=== PATIENT | female | born 1985 | race Hispanic/Latino ===

== ENCOUNTER 2018-05-03 12:01 | Emergency (ER) | payer OTHER, MEDICAID, SELFPAY ==
[2018-05-03 12:14] VITALS: BP 117/113; PULSE 88; RESP 16; TEMP 36.9; O2SAT 100; BMI 25.2
[2018-05-03 14:28] LABS: Bacteria Urine None Seen
--- NOTE | 2018-05-03 14:31 | ED.FEMALEGU ---
HPI - Female Genitourinary <Karla Dawn PA-C - Last Filed: 05/03/18 22:13> General Chief complaint: Urogenital-Female Stated complaint: kidney stone complications Time Seen by Provider: 05/03/18 14:31 Source: patient Mode of arrival: ambulatory Limitations: no limitations History of Present Illness HPI Narrative: This 32-year-old female comes to ED due to kidney stone pain and concern for obstruction. She has history of medullary sponge kidney, with frequent kidney stones and infection. She states that she developed pain 1-1/2 days ago typical of her kidney stones. She tried her usual pain medicines at home including Toradol, morphine, oxycodone but continues to have severe right side pain. She states she has vomited twice today and does have nausea. She has not had gross hematuria. She states that she does not tend to get dysuria, but frequency with decreased void amounts (she states less than 200 mils per void at home when usually 4-500). She has had chills with pain episodes, otherwise no fever, chills, or sweats. She denies any vaginal discharge or possibility of (in a monogamous relationship on continuous OCP). She has no STD concerns. She denies any diarrhea or bowel habit changes. She has not had any exposures to sick contacts. She does not have chest pain, dyspnea, new pain in the extremities or other complaints on systems review. She states that she feels like pain is on the right side of her bladder, but also can feel up the right side into the flank. She states that she talked with her urologist today who advised her to get evaluated since she has had history of obstruction in the past and needed interventional treatment. Related Data Home Medications Medication Instructions Recorded Confirmed chlorthalidone 12.5 mg PO DAILY 05/03/18 05/03/18 cholecalciferol (vitamin D3) 1,000 unit PO DAILY 05/03/18 05/03/18 [Vitamin D3] duloxetine 60 mg PO DAILY 05/03/18 05/03/18 ketorolac 30 mg PO PRN PRN 05/03/18 05/03/18 morphine 15 mg PO Q6H PRN 05/03/18 05/03/18 norethindrone ac-eth estradiol 1 tab PO DAILY 05/03/18 05/03/18 [Diogenes 1.5/30 (21)] oxycodone 15 mg PO Q4H PRN 05/03/18 05/03/18 potassium citrate 10 meq PO BID 05/03/18 05/03/18 tamsulosin [Flomax] 0.4 mg PO DAILY 05/03/18 05/03/18 Previous Rx's Medication Instructions Recorded ciprofloxacin HCl [Cipro] 500 mg PO BID #10 tab 05/03/18 Allergies Allergy/AdvReac Type Severity Reaction Status Date / Time sulfamethoxazole Allergy Verified 05/03/18 12:14 [From Bactrim] trimethoprim [From Bactrim] Allergy Verified 05/03/18 12:14 metoclopramide [From Reglan] AdvReac Verified 05/03/18 12:14 prochlorperazine AdvReac Verified 05/03/18 12:14 [From Compazine] Review of Systems <Karla Dawn PA-C - Last Filed: 05/03/18 22:13> Review of Systems All systems reviewed & are unremarkable except as noted in HPI and below PFSH <Karla Dawn PA-C - Last Filed: 05/03/18 22:13> Comment: Never smoker, no ETOH or street drugs Exam <Karla Dawn PA-C - Last Filed: 05/03/18 22:13> Narrative Exam Narrative: GENERAL APPEARANCE: Patient resting, appears uncomfortable but in NAD HEENT: PERRL, EOMI, no scleral icterus NECK: Supple LUNGS: Clear to auscultation bilaterally. HEART: Rate and rhythm regular, normal S1 and S2, no S3 or S4. ABDOMEN: Soft, nondistended, bowel sounds present x 4 quadrants, no masses palpable, no hepatosplenomegaly. Exquisite right suprapubic tenderness, less tender through the right lateral lower and upper quadrants through to the flank, no midline or left-sided tenderness. No guarding or rebound EXTREMITIES: No edema, no cyanosis DERMATOLOGIC: No jaundice or exanthem NEUROLOGIC: Alert and oriented with normal speech and coordination Initial Vital Signs Initial Vital Signs: Vital Signs Temperature 98.4 F 05/03/18 12:14 Pulse Rate 88 05/03/18 12:14 Respiratory Rate 16 05/03/18 12:14 Blood Pressure 117/113 H 05/03/18 12:14 Pulse Oximetry 100 05/03/18 12:14 <Domonique De La O DO - Last Filed: 05/04/18 08:52> Initial Vital Signs Initial Vital Signs: Vital Signs Temperature 98.4 F 05/03/18 12:14 Pulse Rate 88 05/03/18 12:14 Respiratory Rate 16 05/03/18 12:14 Blood Pressure 117/113 H 05/03/18 12:14 Pulse Oximetry 100 05/03/18 12:14 Course <Karla Dawn PA-C - Last Filed: 05/03/18 22:13> Additional Information: Patient reported resolution of nausea and significant improvement in pain, though pain was persistent. She states that Alfredo works well for her at home, but is concerned if she cannot control pain or may need to come back. I did speak with on-call hospitalist Dr. Dyer who did not feel admission warranted at this point. In addition, explained to patient we do not have Urology or Nephrology available in the hospital here. If she is feeling better and agreeable with discharge. Advised return if acutely worsening symptoms, otherwise she will continue Cipro which she has taken frequently in the past, and speak with her team tomorrow regarding follow-up and whether to continue antibiotics. Orders Ordered: Discontinued Medications Ciprofloxacin (Cipro) 500 mg PO NOW ONE Stop: 05/03/18 16:07 Last Admin: 05/03/18 16:44 Dose: 500 mg Hydromorphone HCl (Dilaudid) 1 mg IV NOW ONE Stop: 05/03/18 14:47 Last Admin: 05/03/18 14:57 Dose: 1 mg Hydromorphone HCl (Dilaudid) 1 mg IV NOW ONE Stop: 05/03/18 16:07 Last Admin: 05/03/18 16:38 Dose: 1 mg Hydromorphone HCl (Dilaudid) 0.5 mg IV NOW ONE Stop: 05/03/18 18:26 Last Admin: 05/03/18 18:29 Dose: 0.5 mg Sodium Chloride (Normal Saline 0.9%) 1,000 mls @ 1,000 mls/hr IV BOLUS ONE Stop: 05/03/18 17:05 Last Infusion: 05/03/18 18:37 Dose: 0 mls/hr Admin: 05/03/18 16:36 Dose: 1,000 mls/hr Ketorolac Tromethamine (Toradol) 30 mg IV NOW ONE Stop: 05/03/18 14:46 Last Admin: 05/03/18 14:57 Dose: 30 mg Ondansetron HCl (Zofran) 4 mg IV NOW ONE Stop: 05/03/18 14:46 Last Admin: 05/03/18 14:57 Dose: 4 mg Vital Signs - 8 hr 05/03/18 16:51 05/03/18 18:02 Pulse Rate 75 84 Respiratory Rate 16 16 Blood Pressure [Right Arm] 154/100 H 156/90 H Pulse Oximetry 100 100 <Domonique De La O DO - Last Filed: 05/04/18 08:52> Orders Ordered: Discontinued Medications Ciprofloxacin (Cipro) 500 mg PO NOW ONE Stop: 05/03/18 16:07 Last Admin: 05/03/18 16:44 Dose: 500 mg Hydromorphone HCl (Dilaudid) 1 mg IV NOW ONE Stop: 05/03/18 14:47 Last Admin: 05/03/18 14:57 Dose: 1 mg Hydromorphone HCl (Dilaudid) 1 mg IV NOW ONE Stop: 05/03/18 16:07 Last Admin: 05/03/18 16:38 Dose: 1 mg Hydromorphone HCl (Dilaudid) 0.5 mg IV NOW ONE Stop: 05/03/18 18:26 Last Admin: 05/03/18 18:29 Dose: 0.5 mg Sodium Chloride (Normal Saline 0.9%) 1,000 mls @ 1,000 mls/hr IV BOLUS ONE Stop: 05/03/18 17:05 Last Infusion: 05/03/18 18:37 Dose: 0 mls/hr Admin: 05/03/18 16:36 Dose: 1,000 mls/hr Ketorolac Tromethamine (Toradol) 30 mg IV NOW ONE Stop: 05/03/18 14:46 Last Admin: 05/03/18 14:57 Dose: 30 mg Ondansetron HCl (Zofran) 4 mg IV NOW ONE Stop: 05/03/18 14:46 Last Admin: 05/03/18 14:57 Dose: 4 mg Vital Signs - 8 hr 05/03/18 16:51 05/03/18 18:02 Pulse Rate 75 84 Respiratory Rate 16 16 Blood Pressure [Right Arm] 154/100 H 156/90 H Pulse Oximetry 100 100 MDM - Female Genitourinary <Karla Dawn PA-C - Last Filed: 05/03/18 22:13> Lab Data Attestation: I reviewed the patient's lab results. Result diagrams: 05/03/18 14:50 05/03/18 14:50 Lab Results 05/03/18 05/03/18 05/03/18 Range/Units 14:15 14:50 14:50 WBC 8.3 (4.5-11.0) X10^3/uL RBC 4.85 (4.0-5.2) X10^6/uL Hgb 14.3 (12.0-16.0) g/dL Hct 42.7 (36-46) % MCV 88.0 (80-100) fL MCH 29.4 (26-34) PG MCHC 33.4 (30-36) % RDW 13.9 (11.6-14.8) % Plt Count 367 (150-400) X10^3/uL Neut % (Auto) 74.9 (50-75) % Lymph % (Auto) 19.4 L (25-40) % [place] % (Auto) 4.8 (3-14) % Eos % (Auto) 0.1 L (2-4) % Baso % (Auto) 0.8 (0-2) % Neut # (Auto) 6200 H (3973-4313) /uL Sodium 146 H (137-145) mmol/L Potassium 3.8 (3.4-5.1) mmol/L Chloride 107 (98-107) mmol/L Carbon Dioxide 24 (22-32) mmol/L BUN 10 (7-17) mg/dL Creatinine 1.00 (0.52-1.04) mg/dL Estimated GFR > 60.0 (>60) mL/min BUN/Creatinine Ratio 10.0 (6-22) Glucose 106 H (70-100) mg/dL Lactate (0.7-2.1) mmol/L Calcium 9.5 (8.4-10.2) mg/dL Total Bilirubin 0.5 (0.2-1.3) mg/dL AST 24 (14-36) IU/L ALT 17 (9-52) IU/L Alkaline Phosphatase 141 H (38-126) U/L Total Protein 8.7 H (6.3-8.2) g/dL Albumin 4.6 (3.5-5.0) g/dL Globulin 4.1 (1.7-4.1) g/dL Albumin/Globulin Ratio 1.1 (1.0-2.8) Lipase 216 (23-300) U/L Urine RBC 1-5/hpf (0-5/HPF) Urine WBC 5-10/hpf H (0-5/HPF) Urine Bacteria None seen (None) Ur Culture Indicated? Specimen cultured Micro UA Comment Not Reportable 05/03/18 Range/Units 15:10 WBC (4.5-11.0) X10^3/uL RBC (4.0-5.2) X10^6/uL Hgb (12.0-16.0) g/dL Hct (36-46) % MCV (80-100) fL MCH (26-34) PG MCHC (30-36) % RDW (11.6-14.8) % Plt Count (150-400) X10^3/uL Neut % (Auto) (50-75) % Lymph % (Auto) (25-40) % [place] % (Auto) (3-14) % Eos % (Auto) (2-4) % Baso % (Auto) (0-2) % Neut # (Auto) (9875-7351) /uL Sodium (137-145) mmol/L Potassium (3.4-5.1) mmol/L Chloride (98-107) mmol/L Carbon Dioxide (22-32) mmol/L BUN (7-17) mg/dL Creatinine (0.52-1.04) mg/dL Estimated GFR (>60) mL/min BUN/Creatinine Ratio (6-22) Glucose (70-100) mg/dL Lactate 1.0 (0.7-2.1) mmol/L Calcium (8.4-10.2) mg/dL Total Bilirubin (0.2-1.3) mg/dL AST (14-36) IU/L ALT (9-52) IU/L Alkaline Phosphatase (38-126) U/L Total Protein (6.3-8.2) g/dL Albumin (3.5-5.0) g/dL Globulin (1.7-4.1) g/dL Albumin/Globulin Ratio (1.0-2.8) Lipase (23-300) U/L Urine RBC (0-5/HPF) Urine WBC (0-5/HPF) Urine Bacteria (None) Ur Culture Indicated? Micro UA Comment Point of Care Testing Test Results Negative Urine Dip Bedside Urine Glucose Negative Bedside Urine Bilirubin - Negative Bedside Urine Ketone - Negative Urine Specific [place] 1.015 Bedside Urine Occult Blood +/- Bedside Urine pH 6.5 Bedside Urine Protein - Negative Bedside Urine Urobilinogen - Negative Bedside Urine Nitrite - Negative Bedside Urine Leukocytes +/- [address] scan - abdomen: Radiologist's impression: [address] [id number] [address] Scan Report Signed Patient: Sophie Farris#: [id number] : 1985Acct:[id number] Age/Sex: 32 / FDate of Service: 05/03/18 Loc: ED Accession Number: [id number] Procedure: CT kidney ureter bladder (KUB) Ordering Provider: Karla Dawn P.A-C PROCEDURE: CT KIDNEY URETER BLADDER (KUB) INDICATIONS: R. flank, bladder pain, h/o multiple stones ?obstruction TECHNIQUE: Noncontrast 5 mm thick sections acquired from the diaphragms to the symphysis. 5 mm thick coronal and sagittal reformats were then performed. For radiation dose reduction, the following was used: automated exposure control, adjustment of mA and/or kV according to patient size. COMPARISON: None. FINDINGS: Image quality: Excellent. Lung bases: Lung bases are clear. Heart size is normal. Urinary system: Both kidneys are normal in size. Bilateral medullary calcifications are noted. Numerous bilateral renal stones are noted ranging in size from 1-4 mm. Bilateral renal No hydronephrosis or perinephric fat stranding. Both ureters appear non-dilated throughout their expected courses. Bladder wall thickness is normal; no calcified bladder stones. Other solid organs: Liver is normal in size. Gallbladder is surgically absent. Pancreas is normal in contours. Spleen is normal in size. No adrenal nodules. Peritoneum and bowel: Unenhanced bowel loops demonstrate normal wall thickness and caliber. No free fluid or air. Nodes and vessels: No retroperitoneal or mesenteric adenopathy by size criteria. Aorta and inferior vena cava are normal in caliber. Abdominal wall: No ventral hernias. Pelvis: No free pelvic fluid. No inguinal hernias or adenopathy. Bones: No suspicious bony lesions. No vertebral body compression fractures. Lower lumbar spine degenerative changes. IMPRESSION: 1. Bilateral medullary nephrocalcinosis which can be due to medullary sponge kidney, renal tubular acidosis, hyperparathyroidism or other causes of hypercalcemic/hypercalciuric states. 2. Small bilateral nonobstructing renal stones associated with medullary nephrocalcinosis. 3. No hydronephrosis. Dictated by: Jessy Patino MD, PhD on 05/03/2018 at 15:03 Approved by: Jessy Patino MD, PhD on 05/03/2018 at 15:15 <Domonique De La O, - Last Filed: 05/04/18 08:52> Lab Data Lab Results 05/03/18 05/03/18 05/03/18 Range/Units 14:15 14:50 14:50 WBC 8.3 (4.5-11.0) X10^3/uL RBC 4.85 (4.0-5.2) X10^6/uL Hgb 14.3 (12.0-16.0) g/dL Hct 42.7 (36-46) % MCV 88.0 (80-100) fL MCH 29.4 (26-34) PG MCHC 33.4 (30-36) % RDW 13.9 (11.6-14.8) % Plt Count 367 (150-400) X10^3/uL Neut % (Auto) 74.9 (50-75) % Lymph % (Auto) 19.4 L (25-40) % [place] % (Auto) 4.8 (3-14) % Eos % (Auto) 0.1 L (2-4) % Baso % (Auto) 0.8 (0-2) % Neut # (Auto) 6200 H (7876-9864) /uL Sodium 146 H (137-145) mmol/L Potassium 3.8 (3.4-5.1) mmol/L Chloride 107 (98-107) mmol/L Carbon Dioxide 24 (22-32) mmol/L BUN 10 (7-17) mg/dL Creatinine 1.00 (0.52-1.04) mg/dL Estimated GFR > 60.0 (>60) mL/min BUN/Creatinine Ratio 10.0 (6-22) Glucose 106 H (70-100) mg/dL Lactate (0.7-2.1) mmol/L Calcium 9.5 (8.4-10.2) mg/dL Total Bilirubin 0.5 (0.2-1.3) mg/dL AST 24 (14-36) IU/L ALT 17 (9-52) IU/L Alkaline Phosphatase 141 H (38-126) U/L Total Protein 8.7 H (6.3-8.2) g/dL Albumin 4.6 (3.5-5.0) g/dL Globulin 4.1 (1.7-4.1) g/dL Albumin/Globulin Ratio 1.1 (1.0-2.8) Lipase 216 (23-300) U/L Urine RBC 1-5/hpf (0-5/HPF) Urine WBC 5-10/hpf H (0-5/HPF) Urine Bacteria None seen (None) Ur Culture Indicated? Specimen cultured Micro UA Comment Not Reportable 05/03/18 Range/Units 15:10 WBC (4.5-11.0) X10^3/uL RBC (4.0-5.2) X10^6/uL Hgb (12.0-16.0) g/dL Hct (36-46) % MCV (80-100) fL MCH (26-34) PG MCHC (30-36) % RDW (11.6-14.8) % Plt Count (150-400) X10^3/uL Neut % (Auto) (50-75) % Lymph % (Auto) (25-40) % [place] % (Auto) (3-14) % Eos % (Auto) (2-4) % Baso % (Auto) (0-2) % Neut # (Auto) (0587-9849) /uL Sodium (137-145) mmol/L Potassium (3.4-5.1) mmol/L Chloride (98-107) mmol/L Carbon Dioxide (22-32) mmol/L BUN (7-17) mg/dL Creatinine (0.52-1.04) mg/dL Estimated GFR (>60) mL/min BUN/Creatinine Ratio (6-22) Glucose (70-100) mg/dL Lactate 1.0 (0.7-2.1) mmol/L Calcium (8.4-10.2) mg/dL Total Bilirubin (0.2-1.3) mg/dL AST (14-36) IU/L ALT (9-52) IU/L Alkaline Phosphatase (38-126) U/L Total Protein (6.3-8.2) g/dL Albumin (3.5-5.0) g/dL Globulin (1.7-4.1) g/dL Albumin/Globulin Ratio (1.0-2.8) Lipase (23-300) U/L Urine RBC (0-5/HPF) Urine WBC (0-5/HPF) Urine Bacteria (None) Ur Culture Indicated? Micro UA Comment Point of Care Testing Test Results Negative Urine Dip Bedside Urine Glucose Negative Bedside Urine Bilirubin - Negative Bedside Urine Ketone - Negative Urine Specific [place] 1.015 Bedside Urine Occult Blood +/- Bedside Urine pH 6.5 Bedside Urine Protein - Negative Bedside Urine Urobilinogen - Negative Bedside Urine Nitrite - Negative Bedside Urine Leukocytes +/- 15 Esterase Discharge Plan Departure Patient Disposition: Home Clinical Impression: Bilateral kidney stones Discharge Date/Time: 05/03/18 18:38 Interventions: ED Discharge Assessment Last Done: 05/03/18 18:37 Instructions: DI for Kidney Stones Activity Restrictions/Additional Instructions: Please continue your Zofran at home so that you will be able to keep down your pain medicines. Continue your tamsulosin. Please diamond picker your 2nd dose of antibiotic in the morning and take this while your urine cultures are pending. Please call your urologist or miter operator (whomever primarily manages your stones/medullary sponge kidney) and let them know about your visit today, and that urine culture is pending. You should return as we talked about if you have any acutely worsening symptoms, or new symptoms such as fever or intractable vomiting. Prescriptions: New ciprofloxacin HCl [Cipro] 500 mg tablet 500 mg PO BID Qty: 10 RF: 0 No Action morphine 15 mg tablet 15 mg PO Q6H PRN (Reason: Breakthrough Pain) RF: 0 norethindrone ac-eth estradiol [Diogenes 1.5 (21)] 1.5-30 mg-mcg Tablet 1 tab PO DAILY RF: 0 ketorolac 10 mg Tablet 30 mg PO PRN PRN (Reason: pain) RF: 0 cholecalciferol (vitamin D3) [Vitamin D3] 1,000 unit Capsule 1,000 unit PO DAILY RF: 0 chlorthalidone 25 mg Tablet 12.5 mg PO DAILY RF: 0 oxycodone 15 mg tablet 15 mg PO Q4H PRN (Reason: pain) RF: 0 tamsulosin [Flomax] 0.4 mg Capsule 0.4 mg PO DAILY RF: 0 potassium citrate 10 mEq (1,080 mg) Tablet Extended Release 10 meq PO BID RF: 0 duloxetine 60 mg Capsule,Delayed Release(Dr/Ec) 60 mg PO DAILY RF: 0 Referrals: Ho Ta MD [Non-Staff] - <Domonique De La O DO - Last Filed: 05/04/18 08:52> Cosign ED Attending Cosignature Attestation: I was immediately available in the department for consultation. Documentation has been reviewed. I agree with assessment and plan.
[2018-05-03 14:38] LABS: Culture Indicated Urine Specimen Cultured; RBC Urine 1-5/HPF (0-5/HPF); WBC Urine 5-10/HPF (0-5/HPF)
--- NOTE | 2018-05-03 14:53 | DI.CT.S_ITS ---
PROCEDURE: CT KIDNEY URETER BLADDER (KUB) INDICATIONS: R. flank, bladder pain, h/o multiple stones ?obstruction TECHNIQUE: Noncontrast 5 mm thick sections acquired from the diaphragms to the symphysis. 5 mm thick coronal and sagittal reformats were then performed. For radiation dose reduction, the following was used: automated exposure control, adjustment of mA and/or kV according to patient size. COMPARISON: None. FINDINGS: Image quality: Excellent. Lung bases: Lung bases are clear. Heart size is normal. Urinary system: Both kidneys are normal in size. Bilateral medullary calcifications are noted. Numerous bilateral renal stones are noted ranging in size from 1-4 mm. Bilateral renal No hydronephrosis or perinephric fat stranding. Both ureters appear non-dilated throughout their expected courses. Bladder wall thickness is normal; no calcified bladder stones. Other solid organs: Liver is normal in size. Gallbladder is surgically absent. Pancreas is normal in contours. Spleen is normal in size. No adrenal nodules. Peritoneum and bowel: Unenhanced bowel loops demonstrate normal wall thickness and caliber. No free fluid or air. Nodes and vessels: No retroperitoneal or mesenteric adenopathy by size criteria. Aorta and inferior vena cava are normal in caliber. Abdominal wall: No ventral hernias. Pelvis: No free pelvic fluid. No inguinal hernias or adenopathy. Bones: No suspicious bony lesions. No vertebral body compression fractures. Lower lumbar spine degenerative changes. IMPRESSION: 1. Bilateral medullary nephrocalcinosis which can be due to medullary sponge kidney, renal tubular acidosis, hyperparathyroidism or other causes of hypercalcemic/hypercalciuric states. 2. Small bilateral nonobstructing renal stones associated with medullary nephrocalcinosis. 3. No hydronephrosis. Dictated by: Jessy Patino MD, PhD on 05/03/2018 at 15:03 Approved by: Jessy Patino MD, PhD on 05/03/2018 at 15:15
[2018-05-03] MEDS: ONDANSETRON 4 MG/2 ML INJ IV (14:57)
[2018-05-03] MEDS: HYDROMORPHONE 1 MG INJ IV ×2 (14:57→16:38)
[2018-05-03] MEDS: KETOROLAC 60 MG/2 ML VIAL 30 MG IV (14:57)
[2018-05-03 15:02] LABS: Add Manual Diff / Slide Review NO; Basophils Percent Auto 0.8 % (0-2); Eosinophils Percent Auto 0.1 % (2-4); Hematocrit 42.7 % (36-46); Hemoglobin 14.3 g/dL (12.0-16.0); Lymphocytes Percent Auto 19.4 % (25-40); Mean Corpuscular HGB Conc 33.4 % (30-36); Mean Corpuscular Hemoglobin 29.4 PG (26-34); Monocytes Percent Auto 4.8 % (3-14); Neutrophils Absolute Auto 6200 /uL (3000-5900); Neutrophils Percent Auto 74.9 % (50-75); Platelet Count 367 X10^3/uL (150-400); Red Blood Cell Count 4.85 X10^6/uL (4.0-5.2); Red Cell Distribution Width 13.9 % (11.6-14.8); White Blood Cell Count 8.3 X10^3/uL (4.5-11.0)
[2018-05-03 15:15] LABS: Alanine Aminotransferase 17 IU/L (9-52); Albumin 4.6 g/dL (3.5-5.0); Albumin Globulin Ratio 1.1 (1.0-2.8); Alkaline Phosphatase 141 U/L (38-126); Aspartate Aminotransferase 24 IU/L (14-36); Bilirubin Total 0.5 mg/dL (0.2-1.3); Blood Urea Nitrogen 10 mg/dL (7-17); Calcium 9.5 mg/dL (8.4-10.2); Carbon Dioxide 24 mmol/L (22-32); Chloride 107 mmol/L (98-107); Estimated Glomerular Filt Rate > 60.0 mL/min (>60); Globulin 4.1 g/dL (1.7-4.1); Glucose 106 mg/dL (70-100); HEMOLYSIS < 15 (0-50); Lipase 216 U/L (23-300); Potassium 3.8 mmol/L (3.4-5.1); Sodium 146 mmol/L (137-145); Total Protein 8.7 g/dL (6.3-8.2)
[2018-05-03] MEDS: SODIUM CHLORIDE 0.9% 1,000 ML 1000 ML IV (16:36)
[2018-05-03] MEDS: CIPROFLOXACIN 500 MG TABLET PO (16:44)
[2018-05-03 16:51] VITALS: BP 154/100; PULSE 75; RESP 16; O2SAT 100
[2018-05-03 18:02] VITALS: BP 156/90; PULSE 84; RESP 16; O2SAT 100
[2018-05-03] MEDS: HYDROMORPHONE 1 MG INJ 0.5 MG IV (18:29)
== END 2018-05-03 18:38 | disposition home or self-care (01) ==
PROVIDERS: Emergency Medicine; Emergency Provider Internal Medicine
DX: N20.0 Calculus of kidney (principal)
CPT/HCPCS: 36415; 36591; 51798; 74176; 80053; 81003; 81015; 81025; 83605; 83690; 85025; 87077; 87086; 87186; 96361; 96374; 96375; 96376; 99283; 99284; J1170; J1885; J2405

== ENCOUNTER 2018-05-04 11:16 | Emergency (ER) | payer OTHER, MEDICAID, SELFPAY ==
[2018-05-04 11:33] VITALS: BP 171/104; PULSE 90; RESP 16; TEMP 36.7; O2SAT 100; BMI 26.7
--- NOTE | 2018-05-04 12:59 | ED.FEMALEGU ---
HPI - Female Genitourinary <Thao Flores, LIDAR TECHNICIAN-BC - Last Filed: 05/04/18 23:00> General Chief complaint: Urogenital-Female Stated complaint: KIDNEY STONE/INFECTION Time Seen by Provider: 05/04/18 12:38 Source: patient Mode of arrival: ambulatory Limitations: no limitations History of Present Illness HPI Narrative: Patient is a 32-year-old female with history of medullary sponge kidney bilaterally who presents with chief complaint of pain and nausea due to kidney stones. She was seen in this facility yesterday, received a CT for kidney stones was found have bilateral stones. She was started on Cipro for which she took her 2nd dose this morning. She has chronic pain issues which she sees her primary care for through [facility]. She states she called her primary care this morning due to increased pain. She states she has taken 30 mg of morphine and 37.5 mg of Percocet as well as 60 mg of ketorolac in the past 4 hr. She states she has done this at the direction of her PCP. She presents stating that she would like to have her vital signs checked because she has been taking so many pain medications. She states she usually gets admitted for this done at [facility], though chart review illustrate that she was stable yesterday and hospitalist did not feel she warranted admission. Related Data Home Medications Medication Instructions Recorded Confirmed chlorthalidone 12.5 mg PO DAILY 05/03/18 05/04/18 cholecalciferol (vitamin D3) 1,000 unit PO DAILY 05/03/18 05/04/18 [Vitamin D3] duloxetine 60 mg PO DAILY 05/03/18 05/04/18 ketorolac 30 mg PO PRN PRN 05/03/18 05/04/18 morphine 15 mg PO Q6H PRN 05/03/18 05/04/18 norethindrone ac-eth estradiol 1 tab PO DAILY 05/03/18 05/04/18 [Diogenes 1.5 (21)] oxycodone 15 mg PO Q4H PRN 05/03/18 05/04/18 potassium citrate 10 meq PO BID 05/03/18 05/04/18 tamsulosin [Flomax] 0.4 mg PO DAILY 05/03/18 05/04/18 Previous Rx's Medication Instructions Recorded ciprofloxacin HCl [Cipro] 500 mg PO BID #10 tab 05/03/18 Allergies Allergy/AdvReac Type Severity Reaction Status Date / Time sulfamethoxazole Allergy Verified 05/04/18 11:31 [From Bactrim] trimethoprim [From Bactrim] Allergy Verified 05/04/18 11:31 metoclopramide [From Reglan] AdvReac Verified 05/04/18 11:31 prochlorperazine AdvReac Verified 05/04/18 11:31 [From Compazine] Review of Systems <CARLOS Abdi - Last Filed: 05/04/18 23:00> Review of Systems GENERAL: Denies chills, fatigue, malaise, fever, sweats. HEENT: Denies sinus pain, ear pain, sore throat, difficulty swallowing, dizziness. RESPIRATORY: Denies dyspnea, cough, wheezing, hemoptysis, sputum. CARDIOVASCULAR: Denies chest pain, palpitations, orthopnea, edema, GASTROINTESTINAL: See HPI : See HPI MUSCULOSKELETAL: denies weakness, joint pain, or bony pain SKIN: Denies rash, skin lesions, or other NEUROLOGIC: Denies weakness, headache, numbness, change in speech, confusion, seizures, incoordination. PSYCHIATRIC: No concerning psychosocial issues. 12 point review of systems is negative except for those stated above Exam <CARLOS Abdi - Last Filed: 05/04/18 23:00> Narrative Exam Narrative: GENERAL: This is a well-nourished, well-developed patient, lying on stretcher HEAD: Atraumatic. Normocephalic. No temporal or scalp tenderness. EYES: Pupils equal round and reactive. Extraocular motions intact. No scleral icterus. No injection or drainage. ENT: Nose without bleeding, purulent drainage or septal hematoma. Throat without erythema, tonsillar hypertrophy or exudate. Uvula midline. Airway patent. NECK: Trachea midline. No JVD or lymphadenopathy. Supple, nontender, no meningeal signs. CARDIOVASCULAR: Regular rate and rhythm without murmurs, gallops, or rubs. RESPIRATORY: Clear to auscultation. Breath sounds equal bilaterally. No wheezes, rales, or rhonchi. No cough on exam. No increased respiratory effort. GASTROINTESTINAL: Abdomen soft, diffusely tender right and left lower quadrants, nondistended. No hepato-splenomegaly, or palpable masses. No guarding. Active bowel sounds all 4 quadrants. EXTREMITIES: No clubbing, cyanosis, or edema. No joint tenderness, effusion, or edema noted. BACK: Nontender without deformity or crepitance. No flank tenderness. No CVA tenderness bilaterally. NEURO: AOx3. SKIN: No rash or erythema. Initial Vital Signs Initial Vital Signs: Vital Signs Temperature 98.0 F 05/04/18 11:33 Pulse Rate 90 05/04/18 11:33 Respiratory Rate 16 05/04/18 11:33 Blood Pressure 171/104 H 05/04/18 11:33 Pulse Oximetry 100 05/04/18 11:33 <Domonique De La O DO - Last Filed: 05/05/18 07:57> Initial Vital Signs Initial Vital Signs: Vital Signs Temperature 98.0 F 05/04/18 11:33 Pulse Rate 90 05/04/18 11:33 Respiratory Rate 16 05/04/18 11:33 Blood Pressure 171/104 H 05/04/18 11:33 Pulse Oximetry 100 05/04/18 11:33 Course <SUAD Abdi-MAREK - Last Filed: 05/04/18 23:00> Course Narrative: I checked on the patient several times throughout her emergency department stay. I reviewed her imaging that was done yesterday. Given the location of her current stones, I believe that most of her pain is from the infection noted. Her preliminary urine culture from yesterday shows Enterococcus. Given her increased pain, I elected to give her an IV, several L of IV fluid. Given her copious dosing of oral pain medication prior to arrival, it was difficult to balance pain control with over medication. A urine sample was taken, lab work was done, a lactate was done. She was given dose of IV Levaquin given that she is on Cipro. She was also given lidocaine IV for pain control, Zofran for nausea. She states she had a panic attack well up to the bathroom and was given Haldol and Benadryl for nausea at that point time, which she state relieved all of her symptoms. An EKG was obtained at that time. After that she was able to sleep. Given her reported 30 mg of morphine as well as 37.5 mg of Lortab dosing prior to her arrival, I discussed the case with Dr. De La O who suggested no narcotics at this point the emergency department. When the patient head hit 6-8 hours without Toradol, I offered her IV Toradol and she requested Dilaudid with it because ?that makes Toradol worked better. I encourage follow-up with her primary care provider copiously. She had no questions or concerns upon discharge. Orders Ordered: Discontinued Medications Diphenhydramine HCl (Benadryl) 50 mg IM NOW ONE Stop: 05/04/18 15:27 Last Admin: 05/04/18 15:35 Dose: 50 mg Haloperidol (Haldol) 2 mg IV NOW ONE Stop: 05/04/18 15:27 Last Admin: 05/04/18 15:35 Dose: 2 mg Sodium Chloride (Normal Saline 0.9%) 1,000 mls @ 1,000 mls/hr IV BOLUS ONE Stop: 05/04/18 14:01 Last Infusion: 05/04/18 15:34 Dose: 0 mls/hr Infusion: 05/04/18 14:15 Dose: 400 mls/hr Admin: 05/04/18 13:39 Dose: 1,000 mls/hr Lidocaine HCl 5.3 ml/ Sodium (Chloride) 55.3 mls @ 331.8 mls/hr IV NOW ONE Stop: 05/04/18 13:47 Last Infusion: 05/04/18 14:15 Dose: 0 mls/hr Admin: 05/04/18 14:02 Dose: 331.8 mls/hr Sodium Chloride (Normal Saline 0.9%) 1,000 mls @ 1,000 mls/hr IV BOLUS ONE Stop: 05/04/18 14:45 Last Infusion: 05/04/18 17:25 Dose: 0 mls/hr Admin: 05/04/18 15:38 Dose: 1,000 mls/hr Levofloxacin (Levaquin) 750 mg in 150 mls @ 100 mls/hr IV NOW ONE Stop: 05/04/18 15:16 Last Infusion: 05/04/18 16:22 Dose: 0 mls/hr Admin: 05/04/18 14:25 Dose: 100 mls/hr Ketorolac Tromethamine (Toradol) 15 mg IV NOW ONE Stop: 05/04/18 17:11 Last Admin: 05/04/18 17:26 Dose: 15 mg Ondansetron HCl (Zofran) 4 mg IV NOW ONE Stop: 05/04/18 13:54 Last Admin: 05/04/18 14:27 Dose: 4 mg Vital Signs - 8 hr 05/04/18 15:57 05/04/18 16:14 05/04/18 17:45 Temperature 98.5 F Pulse Rate 66 90 92 H Respiratory Rate 21 18 16 Blood Pressure 164/124 H Blood Pressure [Right Arm] 172/110 H 168/88 H Pulse Oximetry 97 99 99 <Domonique De La O, DO - Last Filed: 05/05/18 07:57> Orders Ordered: Discontinued Medications Diphenhydramine HCl (Benadryl) 50 mg IM NOW ONE Stop: 05/04/18 15:27 Last Admin: 05/04/18 15:35 Dose: 50 mg Haloperidol (Haldol) 2 mg IV NOW ONE Stop: 05/04/18 15:27 Last Admin: 05/04/18 15:35 Dose: 2 mg Sodium Chloride (Normal Saline 0.9%) 1,000 mls @ 1,000 mls/hr IV BOLUS ONE Stop: 05/04/18 14:01 Last Infusion: 05/04/18 15:34 Dose: 0 mls/hr Infusion: 05/04/18 14:15 Dose: 400 mls/hr Admin: 05/04/18 13:39 Dose: 1,000 mls/hr Lidocaine HCl 5.3 ml/ Sodium (Chloride) 55.3 mls @ 331.8 mls/hr IV NOW ONE Stop: 05/04/18 13:47 Last Infusion: 05/04/18 14:15 Dose: 0 mls/hr Admin: 05/04/18 14:02 Dose: 331.8 mls/hr Sodium Chloride (Normal Saline 0.9%) 1,000 mls @ 1,000 mls/hr IV BOLUS ONE Stop: 05/04/18 14:45 Last Infusion: 05/04/18 17:25 Dose: 0 mls/hr Admin: 05/04/18 15:38 Dose: 1,000 mls/hr Levofloxacin (Levaquin) 750 mg in 150 mls @ 100 mls/hr IV NOW ONE Stop: 05/04/18 15:16 Last Infusion: 05/04/18 16:22 Dose: 0 mls/hr Admin: 05/04/18 14:25 Dose: 100 mls/hr Ketorolac Tromethamine (Toradol) 15 mg IV NOW ONE Stop: 05/04/18 17:11 Last Admin: 05/04/18 17:26 Dose: 15 mg Ondansetron HCl (Zofran) 4 mg IV NOW ONE Stop: 05/04/18 13:54 Last Admin: 05/04/18 14:27 Dose: 4 mg Vital Signs - 8 hr 05/04/18 15:57 05/04/18 16:14 05/04/18 17:45 Temperature 98.5 F Pulse Rate 66 90 92 H Respiratory Rate 21 18 16 Blood Pressure 164/124 H Blood Pressure [Right Arm] 172/110 H 168/88 H Pulse Oximetry 97 99 99 MDM - Female Genitourinary <SUAD Abdi- - Last Filed: 05/04/18 23:00> Lab Data Result diagrams: 05/04/18 13:30 05/04/18 13:30 Lab Results 05/04/18 05/04/18 05/04/18 Range/Units 13:30 13:30 13:30 WBC 7.2 (4.5-11.0) X10^3/uL RBC 4.83 (4.0-5.2) X10^6/uL Hgb 13.9 (12.0-16.0) g/dL Hct 42.4 (36-46) % MCV 87.8 (80-100) fL MCH 28.9 (26-34) PG MCHC 32.9 (30-36) % RDW 13.9 (11.6-14.8) % Plt Count 339 (150-400) X10^3/uL Neut % (Auto) 71.8 (50-75) % Lymph % (Auto) 21.2 L (25-40) % [place] % (Auto) 5.6 (3-14) % Eos % (Auto) 0.5 L (2-4) % Baso % (Auto) 0.9 (0-2) % Neut # (Auto) 5200 (1805-3560) /uL Sodium 145 (137-145) mmol/L Potassium 3.6 (3.4-5.1) mmol/L Chloride 109 H (98-107) mmol/L Carbon Dioxide 22 (22-32) mmol/L BUN 10 (7-17) mg/dL Creatinine 1.00 (0.52-1.04) mg/dL Estimated GFR > 60.0 (>60) mL/min BUN/Creatinine Ratio 10.0 (6-22) Glucose 94 (70-100) mg/dL Lactate (0.7-2.1) mmol/L Calcium 9.3 (8.4-10.2) mg/dL Total Bilirubin 0.3 (0.2-1.3) mg/dL AST 23 (14-36) IU/L ALT 20 (9-52) IU/L Alkaline Phosphatase 139 H (38-126) U/L Total Protein 8.4 H (6.3-8.2) g/dL Albumin 4.6 (3.5-5.0) g/dL Globulin 3.8 (1.7-4.1) g/dL Albumin/Globulin Ratio 1.2 (1.0-2.8) Procalcitonin < 0.05 (<0.5) ng/mL 05/04/18 Range/Units 13:30 WBC (4.5-11.0) X10^3/uL RBC (4.0-5.2) X10^6/uL Hgb (12.0-16.0) g/dL Hct (36-46) % MCV (80-100) fL MCH (26-34) PG MCHC (30-36) % RDW (11.6-14.8) % Plt Count (150-400) X10^3/uL Neut % (Auto) (50-75) % Lymph % (Auto) (25-40) % [place] % (Auto) (3-14) % Eos % (Auto) (2-4) % Baso % (Auto) (0-2) % Neut # (Auto) (3983-3059) /uL Sodium (137-145) mmol/L Potassium (3.4-5.1) mmol/L Chloride (98-107) mmol/L Carbon Dioxide (22-32) mmol/L BUN (7-17) mg/dL Creatinine (0.52-1.04) mg/dL Estimated GFR (>60) mL/min BUN/Creatinine Ratio (6-22) Glucose (70-100) mg/dL Lactate 0.8 (0.7-2.1) mmol/L Calcium (8.4-10.2) mg/dL Total Bilirubin (0.2-1.3) mg/dL AST (14-36) IU/L ALT (9-52) IU/L Alkaline Phosphatase (38-126) U/L Total Protein (6.3-8.2) g/dL Albumin (3.5-5.0) g/dL Globulin (1.7-4.1) g/dL Albumin/Globulin Ratio (1.0-2.8) Procalcitonin (<0.5) ng/mL ECG Data Attestation: I personally reviewed and interpreted this ECG as follows: Interpretation: Sinus rhythm. Ninety-six. No ectopy noted. No ST elevation or depression. MDM Narrative Medical decision making narrative: The patient is a 32-year-old female recently diagnosed with stones within each kidney. However her stones or not urethral or in the ureters at this point time. Given her CT results combined with her urine culture, believe most of her pain is from infection at this point time. However she had a normal lactate has a normal white blood cell count. She is not tachycardic, though has elevated blood pressure but has no evidence of end-organ damage. The patient was hemodynamically stable throughout her stay in the emergency department. She was given multiple medications for pain and nausea including lidocaine, Toradol, Haldol, Benadryl as well as normal saline. I discussed at length follow up with her primary care provider, continued antibiotics. Discussed return precautions to the emergency department. <Domonique De La O, DO - Last Filed: 05/05/18 07:57> Lab Data Lab Results 05/04/18 05/04/18 05/04/18 Range/Units 13:30 13:30 13:30 WBC 7.2 (4.5-11.0) X10^3/uL RBC 4.83 (4.0-5.2) X10^6/uL Hgb 13.9 (12.0-16.0) g/dL Hct 42.4 (36-46) % MCV 87.8 (80-100) fL MCH 28.9 (26-34) PG MCHC 32.9 (30-36) % RDW 13.9 (11.6-14.8) % Plt Count 339 (150-400) X10^3/uL Neut % (Auto) 71.8 (50-75) % Lymph % (Auto) 21.2 L (25-40) % [place] % (Auto) 5.6 (3-14) % Eos % (Auto) 0.5 L (2-4) % Baso % (Auto) 0.9 (0-2) % Neut # (Auto) 5200 (1511-0962) /uL Sodium 145 (137-145) mmol/L Potassium 3.6 (3.4-5.1) mmol/L Chloride 109 H (98-107) mmol/L Carbon Dioxide 22 (22-32) mmol/L BUN 10 (7-17) mg/dL Creatinine 1.00 (0.52-1.04) mg/dL Estimated GFR > 60.0 (>60) mL/min BUN/Creatinine Ratio 10.0 (6-22) Glucose 94 (70-100) mg/dL Lactate (0.7-2.1) mmol/L Calcium 9.3 (8.4-10.2) mg/dL Total Bilirubin 0.3 (0.2-1.3) mg/dL AST 23 (14-36) IU/L ALT 20 (9-52) IU/L Alkaline Phosphatase 139 H (38-126) U/L Total Protein 8.4 H (6.3-8.2) g/dL Albumin 4.6 (3.5-5.0) g/dL Globulin 3.8 (1.7-4.1) g/dL Albumin/Globulin Ratio 1.2 (1.0-2.8) Procalcitonin < 0.05 (<0.5) ng/mL 05/04/18 Range/Units 13:30 WBC (4.5-11.0) X10^3/uL RBC (4.0-5.2) X10^6/uL Hgb (12.0-16.0) g/dL Hct (36-46) % MCV (80-100) fL MCH (26-34) PG MCHC (30-36) % RDW (11.6-14.8) % Plt Count (150-400) X10^3/uL Neut % (Auto) (50-75) % Lymph % (Auto) (25-40) % [place] % (Auto) (3-14) % Eos % (Auto) (2-4) % Baso % (Auto) (0-2) % Neut # (Auto) (8378-8328) /uL Sodium (137-145) mmol/L Potassium (3.4-5.1) mmol/L Chloride (98-107) mmol/L Carbon Dioxide (22-32) mmol/L BUN (7-17) mg/dL Creatinine (0.52-1.04) mg/dL Estimated GFR (>60) mL/min BUN/Creatinine Ratio (6-22) Glucose (70-100) mg/dL Lactate 0.8 (0.7-2.1) mmol/L Calcium (8.4-10.2) mg/dL Total Bilirubin (0.2-1.3) mg/dL AST (14-36) IU/L ALT (9-52) IU/L Alkaline Phosphatase (38-126) U/L Total Protein (6.3-8.2) g/dL Albumin (3.5-5.0) g/dL Globulin (1.7-4.1) g/dL Albumin/Globulin Ratio (1.0-2.8) Procalcitonin (<0.5) ng/mL Discharge Plan Departure Patient Disposition: Home Clinical Impression: Bilateral kidney stones Discharge Date/Time: 05/04/18 17:47 Interventions: ED Discharge Assessment Last Done: 05/04/18 17:45 Instructions: Kidney Stones -- Adult, DI for Kidney Stones Activity Restrictions/Additional Instructions: Please follow-up with her primary care provider as we discussed. Today your labs looked well. Your white blood cell count is not elevated and your lactate test was negative. Please follow-up with her primary care provider tomorrow. Please push fluids and rest. Prescriptions: No Action morphine 15 mg tablet 15 mg PO Q6H PRN (Reason: Breakthrough Pain) RF: 0 norethindrone ac-eth estradiol [Diogenes 1.5/30 (21)] 1.5-30 mg-mcg Tablet 1 tab PO DAILY RF: 0 ketorolac 10 mg Tablet 30 mg PO PRN PRN (Reason: pain) RF: 0 cholecalciferol (vitamin D3) [Vitamin D3] 1,000 unit Capsule 1,000 unit PO DAILY RF: 0 chlorthalidone 25 mg Tablet 12.5 mg PO DAILY RF: 0 oxycodone 15 mg tablet 15 mg PO Q4H PRN (Reason: pain) RF: 0 tamsulosin [Flomax] 0.4 mg Capsule 0.4 mg PO DAILY RF: 0 potassium citrate 10 mEq (1,080 mg) Tablet Extended Release 10 meq PO BID RF: 0 duloxetine 60 mg Capsule,Delayed Release(Dr/Ec) 60 mg PO DAILY RF: 0 ciprofloxacin HCl [Cipro] 500 mg tablet 500 mg PO BID Qty: 10 RF: 0 <Domonique De La O DO - Last Filed: 05/05/18 07:57> Cosign ED Attending Cosjustinature Attestation: I was immediately available in the department for consultation. Documentation has been reviewed. I agree with assessment and plan.
--- NOTE | 2018-05-04 13:02 | ED_ITS ---
HPI - Female Genitourinary <Thao Flores, INCUBATOR TENDER-BC - Last Filed: 05/04/18 23:00> General Chief complaint: Urogenital-Female Stated complaint: KIDNEY STONE/INFECTION Time Seen by Provider: 05/04/18 12:38 Source: patient Mode of arrival: ambulatory Limitations: no limitations History of Present Illness HPI Narrative: Patient is a 32-year-old female with history of medullary sponge kidney bilaterally who presents with chief complaint of pain and nausea due to kidney stones. She was seen in this facility yesterday, received a CT for kidney stones was found have bilateral stones. She was started on Cipro for which she took her 2nd dose this morning. She has chronic pain issues which she sees her primary care for through [facility]. She states she called her primary care this morning due to increased pain. She states she has taken 30 mg of morphine and 37.5 mg of Percocet as well as 60 mg of ketorolac in the past 4 hr. She states she has done this at the direction of her PCP. She presents stating that she would like to have her vital signs checked because she has been taking so many pain medications. She states she usually gets admitted for this done at [facility], though chart review illustrate that she was stable yesterday and hospitalist did not feel she warranted admission. Related Data Home Medications Medication Instructions Recorded Confirmed chlorthalidone 12.5 mg PO DAILY 05/03/18 05/04/18 cholecalciferol (vitamin D3) 1,000 unit PO DAILY 05/03/18 05/04/18 [Vitamin D3] duloxetine 60 mg PO DAILY 05/03/18 05/04/18 ketorolac 30 mg PO PRN PRN 05/03/18 05/04/18 morphine 15 mg PO Q6H PRN 05/03/18 05/04/18 norethindrone ac-eth estradiol 1 tab PO DAILY 05/03/18 05/04/18 [Diogenes 1.5 (21)] oxycodone 15 mg PO Q4H PRN 05/03/18 05/04/18 potassium citrate 10 meq PO BID 05/03/18 05/04/18 tamsulosin [Flomax] 0.4 mg PO DAILY 05/03/18 05/04/18 Previous Rx's Medication Instructions Recorded ciprofloxacin HCl [Cipro] 500 mg PO BID #10 tab 05/03/18 Allergies Allergy/AdvReac Type Severity Reaction Status Date / Time sulfamethoxazole Allergy Verified 05/04/18 11:31 [From Bactrim] trimethoprim [From Bactrim] Allergy Verified 05/04/18 11:31 metoclopramide [From Reglan] AdvReac Verified 05/04/18 11:31 prochlorperazine AdvReac Verified 05/04/18 11:31 [From Compazine] Review of Systems <CARLOS Abdi - Last Filed: 05/04/18 23:00> Review of Systems GENERAL: Denies chills, fatigue, malaise, fever, sweats. HEENT: Denies sinus pain, ear pain, sore throat, difficulty swallowing, dizziness. RESPIRATORY: Denies dyspnea, cough, wheezing, hemoptysis, sputum. CARDIOVASCULAR: Denies chest pain, palpitations, orthopnea, edema, GASTROINTESTINAL: See HPI : See HPI MUSCULOSKELETAL: denies weakness, joint pain, or bony pain SKIN: Denies rash, skin lesions, or other NEUROLOGIC: Denies weakness, headache, numbness, change in speech, confusion, seizures, incoordination. PSYCHIATRIC: No concerning psychosocial issues. 12 point review of systems is negative except for those stated above Exam <CARLOS Abdi - Last Filed: 05/04/18 23:00> Narrative Exam Narrative: GENERAL: This is a well-nourished, well-developed patient, lying on stretcher HEAD: Atraumatic. Normocephalic. No temporal or scalp tenderness. EYES: Pupils equal round and reactive. Extraocular motions intact. No scleral icterus. No injection or drainage. ENT: Nose without bleeding, purulent drainage or septal hematoma. Throat without erythema, tonsillar hypertrophy or exudate. Uvula midline. Airway patent. NECK: Trachea midline. No JVD or lymphadenopathy. Supple, nontender, no meningeal signs. CARDIOVASCULAR: Regular rate and rhythm without murmurs, gallops, or rubs. RESPIRATORY: Clear to auscultation. Breath sounds equal bilaterally. No wheezes , rales, or rhonchi. No cough on exam. No increased respiratory effort. GASTROINTESTINAL: Abdomen soft, diffusely tender right and left lower quadrants , nondistended. No hepato-splenomegaly, or palpable masses. No guarding. Active bowel sounds all 4 quadrants. EXTREMITIES: No clubbing, cyanosis, or edema. No joint tenderness, effusion, or edema noted. BACK: Nontender without deformity or crepitance. No flank tenderness. No CVA tenderness bilaterally. NEURO: AOx3. SKIN: No rash or erythema. Initial Vital Signs Initial Vital Signs: Vital Signs Temperature 98.0 F 05/04/18 11:33 Pulse Rate 90 05/04/18 11:33 Respiratory Rate 16 05/04/18 11:33 Blood Pressure 171/104 H 05/04/18 11:33 Pulse Oximetry 100 05/04/18 11:33 <Domonique De La O DO - Last Filed: 05/05/18 07:57> Initial Vital Signs Initial Vital Signs: Vital Signs Temperature 98.0 F 05/04/18 11:33 Pulse Rate 90 05/04/18 11:33 Respiratory Rate 16 05/04/18 11:33 Blood Pressure 171/104 H 05/04/18 11:33 Pulse Oximetry 100 05/04/18 11:33 Course <SUAD Abdi-MAREK - Last Filed: 05/04/18 23:00> Course Narrative: I checked on the patient several times throughout her emergency department stay. I reviewed her imaging that was done yesterday. Given the location of her current stones, I believe that most of her pain is from the infection noted. Her preliminary urine culture from yesterday shows Enterococcus. Given her increased pain, I elected to give her an IV, several L of IV fluid. Given her copious dosing of oral pain medication prior to arrival , it was difficult to balance pain control with over medication. A urine sample was taken, lab work was done, a lactate was done. She was given dose of IV Levaquin given that she is on Cipro. She was also given lidocaine IV for pain control, Zofran for nausea. She states she had a panic attack well up to the bathroom and was given Haldol and Benadryl for nausea at that point time, which she state relieved all of her symptoms. An EKG was obtained at that time. After that she was able to sleep. Given her reported 30 mg of morphine as well as 37.5 mg of Lortab dosing prior to her arrival, I discussed the case with Dr. De La O who suggested no narcotics at this point the emergency department. When the patient head hit 6-8 hours without Toradol, I offered her IV Toradol and she requested Dilaudid with it because ?that makes Toradol worked better. I encourage follow-up with her primary care provider copiously. She had no questions or concerns upon discharge. Orders Ordered: Discontinued Medications Diphenhydramine HCl (Benadryl) 50 mg IM NOW ONE Stop: 05/04/18 15:27 Last Admin: 05/04/18 15:35 Dose: 50 mg Haloperidol (Haldol) 2 mg IV NOW ONE Stop: 05/04/18 15:27 Last Admin: 05/04/18 15:35 Dose: 2 mg Sodium Chloride (Normal Saline 0.9%) 1,000 mls @ 1,000 mls/hr IV BOLUS ONE Stop: 05/04/18 14:01 Last Infusion: 05/04/18 15:34 Dose: 0 mls/hr Infusion: 05/04/18 14:15 Dose: 400 mls/hr Admin: 05/04/18 13:39 Dose: 1,000 mls/hr Lidocaine HCl 5.3 ml/ Sodium (Chloride) 55.3 mls @ 331.8 mls/hr IV NOW ONE Stop: 05/04/18 13:47 Last Infusion: 05/04/18 14:15 Dose: 0 mls/hr Admin: 05/04/18 14:02 Dose: 331.8 mls/hr Sodium Chloride (Normal Saline 0.9%) 1,000 mls @ 1,000 mls/hr IV BOLUS ONE Stop: 05/04/18 14:45 Last Infusion: 05/04/18 17:25 Dose: 0 mls/hr Admin: 05/04/18 15:38 Dose: 1,000 mls/hr Levofloxacin (Levaquin) 750 mg in 150 mls @ 100 mls/hr IV NOW ONE Stop: 05/04/18 15:16 Last Infusion: 05/04/18 16:22 Dose: 0 mls/hr Admin: 05/04/18 14:25 Dose: 100 mls/hr Ketorolac Tromethamine (Toradol) 15 mg IV NOW ONE Stop: 05/04/18 17:11 Last Admin: 05/04/18 17:26 Dose: 15 mg Ondansetron HCl (Zofran) 4 mg IV NOW ONE Stop: 05/04/18 13:54 Last Admin: 05/04/18 14:27 Dose: 4 mg Vital Signs - 8 hr 05/04/18 15:57 05/04/18 16:14 05/04/18 17:45 Temperature 98.5 F Pulse Rate 66 90 92 H Respiratory Rate 21 18 16 Blood Pressure 164/124 H Blood Pressure [Right Arm] 172/110 H 168/88 H Pulse Oximetry 97 99 99 <Domonique De La O, DO - Last Filed: 05/05/18 07:57> Orders Ordered: Discontinued Medications Diphenhydramine HCl (Benadryl) 50 mg IM NOW ONE Stop: 05/04/18 15:27 Last Admin: 05/04/18 15:35 Dose: 50 mg Haloperidol (Haldol) 2 mg IV NOW ONE Stop: 05/04/18 15:27 Last Admin: 05/04/18 15:35 Dose: 2 mg Sodium Chloride (Normal Saline 0.9%) 1,000 mls @ 1,000 mls/hr IV BOLUS ONE Stop: 05/04/18 14:01 Last Infusion: 05/04/18 15:34 Dose: 0 mls/hr Infusion: 05/04/18 14:15 Dose: 400 mls/hr Admin: 05/04/18 13:39 Dose: 1,000 mls/hr Lidocaine HCl 5.3 ml/ Sodium (Chloride) 55.3 mls @ 331.8 mls/hr IV NOW ONE Stop: 05/04/18 13:47 Last Infusion: 05/04/18 14:15 Dose: 0 mls/hr Admin: 05/04/18 14:02 Dose: 331.8 mls/hr Sodium Chloride (Normal Saline 0.9%) 1,000 mls @ 1,000 mls/hr IV BOLUS ONE Stop: 05/04/18 14:45 Last Infusion: 05/04/18 17:25 Dose: 0 mls/hr Admin: 05/04/18 15:38 Dose: 1,000 mls/hr Levofloxacin (Levaquin) 750 mg in 150 mls @ 100 mls/hr IV NOW ONE Stop: 05/04/18 15:16 Last Infusion: 05/04/18 16:22 Dose: 0 mls/hr Admin: 05/04/18 14:25 Dose: 100 mls/hr Ketorolac Tromethamine (Toradol) 15 mg IV NOW ONE Stop: 05/04/18 17:11 Last Admin: 05/04/18 17:26 Dose: 15 mg Ondansetron HCl (Zofran) 4 mg IV NOW ONE Stop: 05/04/18 13:54 Last Admin: 05/04/18 14:27 Dose: 4 mg Vital Signs - 8 hr 05/04/18 15:57 05/04/18 16:14 05/04/18 17:45 Temperature 98.5 F Pulse Rate 66 90 92 H Respiratory Rate 21 18 16 Blood Pressure 164/124 H Blood Pressure [Right Arm] 172/110 H 168/88 H Pulse Oximetry 97 99 99 MDM - Female Genitourinary <SUAD Abdi- - Last Filed: 05/04/18 23:00> Lab Data Result diagrams: 05/04/18 13:30 05/04/18 13:30 Lab Results 05/04/18 05/04/18 05/04/18 Range/Units 13:30 13:30 13:30 WBC 7.2 (4.5-11.0) X10^3/uL RBC 4.83 (4.0-5.2) X10^6/uL Hgb 13.9 (12.0-16.0) g/dL Hct 42.4 (36-46) % MCV 87.8 (80-100) fL MCH 28.9 (26-34) PG MCHC 32.9 (30-36) % RDW 13.9 (11.6-14.8) % Plt Count 339 (150-400) X10^3/uL Neut % (Auto) 71.8 (50-75) % Lymph % (Auto) 21.2 L (25-40) % [place] % (Auto) 5.6 (3-14) % Eos % (Auto) 0.5 L (2-4) % Baso % (Auto) 0.9 (0-2) % Neut # (Auto) 5200 (5144-7835) /uL Sodium 145 (137-145) mmol/L Potassium 3.6 (3.4-5.1) mmol/L Chloride 109 H (98-107) mmol/L Carbon Dioxide 22 (22-32) mmol/L BUN 10 (7-17) mg/dL Creatinine 1.00 (0.52-1.04) mg/dL Estimated GFR > 60.0 (>60) mL/min BUN/Creatinine Ratio 10.0 (6-22) Glucose 94 (70-100) mg/dL Lactate (0.7-2.1) mmol/L Calcium 9.3 (8.4-10.2) mg/dL Total Bilirubin 0.3 (0.2-1.3) mg/dL AST 23 (14-36) IU/L ALT 20 (9-52) IU/L Alkaline Phosphatase 139 H (38-126) U/L Total Protein 8.4 H (6.3-8.2) g/dL Albumin 4.6 (3.5-5.0) g/dL Globulin 3.8 (1.7-4.1) g/dL Albumin/Globulin Ratio 1.2 (1.0-2.8) Procalcitonin < 0.05 (<0.5) ng/mL 05/04/18 Range/Units 13:30 WBC (4.5-11.0) X10^3/uL RBC (4.0-5.2) X10^6/uL Hgb (12.0-16.0) g/dL Hct (36-46) % MCV (80-100) fL MCH (26-34) PG MCHC (30-36) % RDW (11.6-14.8) % Plt Count (150-400) X10^3/uL Neut % (Auto) (50-75) % Lymph % (Auto) (25-40) % [place] % (Auto) (3-14) % Eos % (Auto) (2-4) % Baso % (Auto) (0-2) % Neut # (Auto) (2325-3294) /uL Sodium (137-145) mmol/L Potassium (3.4-5.1) mmol/L Chloride (98-107) mmol/L Carbon Dioxide (22-32) mmol/L BUN (7-17) mg/dL Creatinine (0.52-1.04) mg/dL Estimated GFR (>60) mL/min BUN/Creatinine Ratio (6-22) Glucose (70-100) mg/dL Lactate 0.8 (0.7-2.1) mmol/L Calcium (8.4-10.2) mg/dL Total Bilirubin (0.2-1.3) mg/dL AST (14-36) IU/L ALT (9-52) IU/L Alkaline Phosphatase (38-126) U/L Total Protein (6.3-8.2) g/dL Albumin (3.5-5.0) g/dL Globulin (1.7-4.1) g/dL Albumin/Globulin Ratio (1.0-2.8) Procalcitonin (<0.5) ng/mL ECG Data Attestation: I personally reviewed and interpreted this ECG as follows: Interpretation: Sinus rhythm. Ninety-six. No ectopy noted. No ST elevation or depression. MDM Narrative Medical decision making narrative: The patient is a 32-year-old female recently diagnosed with stones within each kidney. However her stones or not urethral or in the ureters at this point time. Given her CT results combined with her urine culture, believe most of her pain is from infection at this point time. However she had a normal lactate has a normal white blood cell count. She is not tachycardic, though has elevated blood pressure but has no evidence of end- organ damage. The patient was hemodynamically stable throughout her stay in the emergency department. She was given multiple medications for pain and nausea including lidocaine, Toradol, Haldol, Benadryl as well as normal saline. I discussed at length follow up with her primary care provider, continued antibiotics. Discussed return precautions to the emergency department. <Domonique De La O, DO - Last Filed: 05/05/18 07:57> Lab Data Lab Results 05/04/18 05/04/18 05/04/18 Range/Units 13:30 13:30 13:30 WBC 7.2 (4.5-11.0) X10^3/uL RBC 4.83 (4.0-5.2) X10^6/uL Hgb 13.9 (12.0-16.0) g/dL Hct 42.4 (36-46) % MCV 87.8 (80-100) fL MCH 28.9 (26-34) PG MCHC 32.9 (30-36) % RDW 13.9 (11.6-14.8) % Plt Count 339 (150-400) X10^3/uL Neut % (Auto) 71.8 (50-75) % Lymph % (Auto) 21.2 L (25-40) % [place] % (Auto) 5.6 (3-14) % Eos % (Auto) 0.5 L (2-4) % Baso % (Auto) 0.9 (0-2) % Neut # (Auto) 5200 (0036-6129) /uL Sodium 145 (137-145) mmol/L Potassium 3.6 (3.4-5.1) mmol/L Chloride 109 H (98-107) mmol/L Carbon Dioxide 22 (22-32) mmol/L BUN 10 (7-17) mg/dL Creatinine 1.00 (0.52-1.04) mg/dL Estimated GFR > 60.0 (>60) mL/min BUN/Creatinine Ratio 10.0 (6-22) Glucose 94 (70-100) mg/dL Lactate (0.7-2.1) mmol/L Calcium 9.3 (8.4-10.2) mg/dL Total Bilirubin 0.3 (0.2-1.3) mg/dL AST 23 (14-36) IU/L ALT 20 (9-52) IU/L Alkaline Phosphatase 139 H (38-126) U/L Total Protein 8.4 H (6.3-8.2) g/dL Albumin 4.6 (3.5-5.0) g/dL Globulin 3.8 (1.7-4.1) g/dL Albumin/Globulin Ratio 1.2 (1.0-2.8) Procalcitonin < 0.05 (<0.5) ng/mL 05/04/18 Range/Units 13:30 WBC (4.5-11.0) X10^3/uL RBC (4.0-5.2) X10^6/uL Hgb (12.0-16.0) g/dL Hct (36-46) % MCV (80-100) fL MCH (26-34) PG MCHC (30-36) % RDW (11.6-14.8) % Plt Count (150-400) X10^3/uL Neut % (Auto) (50-75) % Lymph % (Auto) (25-40) % [place] % (Auto) (3-14) % Eos % (Auto) (2-4) % Baso % (Auto) (0-2) % Neut # (Auto) (3111-8099) /uL Sodium (137-145) mmol/L Potassium (3.4-5.1) mmol/L Chloride (98-107) mmol/L Carbon Dioxide (22-32) mmol/L BUN (7-17) mg/dL Creatinine (0.52-1.04) mg/dL Estimated GFR (>60) mL/min BUN/Creatinine Ratio (6-22) Glucose (70-100) mg/dL Lactate 0.8 (0.7-2.1) mmol/L Calcium (8.4-10.2) mg/dL Total Bilirubin (0.2-1.3) mg/dL AST (14-36) IU/L ALT (9-52) IU/L Alkaline Phosphatase (38-126) U/L Total Protein (6.3-8.2) g/dL Albumin (3.5-5.0) g/dL Globulin (1.7-4.1) g/dL Albumin/Globulin Ratio (1.0-2.8) Procalcitonin (<0.5) ng/mL Discharge Plan Departure Patient Disposition: Home Clinical Impression: Bilateral kidney stones Discharge Date/Time: 05/04/18 17:47 Interventions: ED Discharge Assessment Last Done: 05/04/18 17:45 Instructions: Kidney Stones -- Adult, DI for Kidney Stones Activity Restrictions/Additional Instructions: Please follow-up with her primary care provider as we discussed. Today your labs looked well. Your white blood cell count is not elevated and your lactate test was negative. Please follow-up with her primary care provider tomorrow. Please push fluids and rest. Prescriptions: No Action morphine 15 mg tablet 15 mg PO Q6H PRN (Reason: Breakthrough Pain) RF: 0 norethindrone ac-eth estradiol [Diogenes 1.5/30 (21)] 1.5-30 mg-mcg Tablet 1 tab PO DAILY RF: 0 ketorolac 10 mg Tablet 30 mg PO PRN PRN (Reason: pain) RF: 0 cholecalciferol (vitamin D3) [Vitamin D3] 1,000 unit Capsule 1,000 unit PO DAILY RF: 0 chlorthalidone 25 mg Tablet 12.5 mg PO DAILY RF: 0 oxycodone 15 mg tablet 15 mg PO Q4H PRN (Reason: pain) RF: 0 tamsulosin [Flomax] 0.4 mg Capsule 0.4 mg PO DAILY RF: 0 potassium citrate 10 mEq (1,080 mg) Tablet Extended Release 10 meq PO BID RF: 0 duloxetine 60 mg Capsule,Delayed Release(Dr/Ec) 60 mg PO DAILY RF: 0 ciprofloxacin HCl [Cipro] 500 mg tablet 500 mg PO BID Qty: 10 RF: 0 <Domonique De La O DO - Last Filed: 05/05/18 07:57> Cosign ED Attending Cosjustinature Attestation: I was immediately available in the department for consultation. Documentation has been reviewed. I agree with assessment and plan.
[2018-05-04] MEDS: SODIUM CHLORIDE 0.9% 1,000 ML 1000 ML IV ×2 (13:39→15:38)
[2018-05-04 13:44] LABS: Add Manual Diff / Slide Review NO; Basophils Percent Auto 0.9 % (0-2); Eosinophils Percent Auto 0.5 % (2-4); Hematocrit 42.4 % (36-46); Hemoglobin 13.9 g/dL (12.0-16.0); Lymphocytes Percent Auto 21.2 % (25-40); Mean Corpuscular HGB Conc 32.9 % (30-36); Mean Corpuscular Hemoglobin 28.9 PG (26-34); Mean Corpuscular Volume 87.8 fL (80-100); Monocytes Percent Auto 5.6 % (3-14); Neutrophils Absolute Auto 5200 /uL (3000-5900); Neutrophils Percent Auto 71.8 % (50-75); Platelet Count 339 X10^3/uL (150-400); Red Blood Cell Count 4.83 X10^6/uL (4.0-5.2); Red Cell Distribution Width 13.9 % (11.6-14.8); White Blood Cell Count 7.2 X10^3/uL (4.5-11.0)
[2018-05-04 13:55] LABS: Alanine Aminotransferase 20 IU/L (9-52); Albumin 4.6 g/dL (3.5-5.0); Albumin Globulin Ratio 1.2 (1.0-2.8); Alkaline Phosphatase 139 U/L (38-126); Aspartate Aminotransferase 23 IU/L (14-36); Bilirubin Total 0.3 mg/dL (0.2-1.3); Blood Urea Nitrogen 10 mg/dL (7-17); Calcium 9.3 mg/dL (8.4-10.2); Carbon Dioxide 22 mmol/L (22-32); Chloride 109 mmol/L (98-107); Estimated Glomerular Filt Rate > 60.0 mL/min (>60); Globulin 3.8 g/dL (1.7-4.1); Glucose 94 mg/dL (70-100); HEMOLYSIS < 15 (0-50); Potassium 3.6 mmol/L (3.4-5.1); Sodium 145 mmol/L (137-145); Total Protein 8.4 g/dL (6.3-8.2)
[2018-05-04 13:56] LABS: Lactate (Lactic Acid) 0.8 mmol/L (0.7-2.1)
[2018-05-04] MEDS: LIDOCAINE 2% 5.3 ML in SODIUM CHLORIDE 0.9% 50 ML 331.8 ML IV (14:02)
[2018-05-04] MEDS: levoFLOXacin 750 MG/150 ML PIGGYBACK 100 MG IV (14:25)
[2018-05-04] MEDS: ONDANSETRON 4 MG/2 ML INJ IV (14:27)
[2018-05-04 14:38] LABS: Procalcitonin < 0.05 ng/mL (<0.5)
[2018-05-04] MEDS: diphenhydrAMINE 50 MG/ML VIAL IM (15:35)
[2018-05-04] MEDS: HALOPERIDOL 5 MG/ML VIAL 2 MG IV (15:35)
[2018-05-04 15:57] VITALS: BP 172/110; PULSE 66; RESP 21; O2SAT 97
[2018-05-04 16:14] VITALS: BP 168/88; PULSE 90; RESP 18; O2SAT 99
[2018-05-04] MEDS: KETOROLAC 60 MG/2 ML VIAL 15 MG IV (17:26)
--- NOTE | 2018-05-04 17:29 | PC.NURSE ---
1530 Pt c/o severe 9/10 chest pressure. Tearful and clutching chest and breathing fast. Reports her anxiety is very high. Provider notified. EKG, haldol, and diphenydramine administered, per order.
[2018-05-04 17:45] VITALS: BP 164/124; PULSE 92; RESP 16; TEMP 36.9; O2SAT 99
== END 2018-05-04 17:47 | disposition home or self-care (01) ==
PROVIDERS: Emergency Provider Nurse Practitioner Family
DX: N20.0 Calculus of kidney (principal)
CPT/HCPCS: 36591; 80053; 83605; 84145; 85025; 93005; 96361; 96365; 96366; 96375; 99284; J1200; J1630; J1885; J1956; J2405